=== PATIENT | female | born 1950 | race Caucasian/White ===

== ENCOUNTER 2016-09-12 13:04 | Emergency (ER) | payer BC, OTHER ==
[2016-09-12 13:10] VITALS: BP 169/70; PULSE 78; TEMP 98.6; BMI 24.8
--- NOTE | 2016-09-12 15:26 | PDOC ---
History of Present Illness - General History Source: Patient Exam Limitations: No Limitations - History of Present Illness Initial Comments: 09/12/16 15:26 The patient is a 66 year old female, with significant past medical history of CAD s/p stents x2, who presents today complaining of RLE pain s/p mechanical fall at work yesterday. The patient explains that she slipped and fell on the medial aspect of her right knee and thigh. The patient describes a shooting pain at the right knee that radiates to the right hip and a sore ach in the right lower back. The knee pain is exacerbated upon ambulation and flexion. She noticed that her knee started clicking after the injury. She denies paresthesias to the right foot. Denies LOC, head trauma. Denies neck pain. Denies fever, chills, nausea, vomiting. Allergies: none reported Surgical Hx: cholecystectomy Social Hx: Tobacco use. <Susana Barney - Last Filed: 09/12/16 15:52> <Lior Cortes - Last Filed: 09/12/16 17:05> - General Chief Complaint: Injury Stated Complaint: BACK, RT HIP, RT THIGH, RT KNEE PAIN S/P FALL Time Seen by Provider: 09/12/16 13:09 Past History <Susana Barney - Last Filed: 09/12/16 15:52> - Past Medical History Cancer: Yes (Cervical) Cardiac Disorders: Yes (CAD) - Surgical History Cardiac Surgery: Yes (CARDIAC STENTS) Cholecystectomy: Yes - Psycho/Social/Smoking Cessation Hx Anxiety: No Suicidal Ideation: No Smoking History: Current every day smoker Have you smoked in the past 12 months: Yes Number of Cigarettes Smoked Daily: 6 If you are a former smoker, when did you quit?: 2013 Information on smoking cessation initiated: Yes 'Breaking Loose' booklet given: 09/12/16 Hx Alcohol Use: (occasional) Drug/Substance Use Hx: No Substance Use Type: None Hx Substance Use Treatment: No <Lior Cortes - Last Filed: 09/12/16 17:05> - Past Medical History Allergies/Adverse Reactions: Allergies Allergy/AdvReac Type Severity Reaction Status Date / Time No Known Allergies Allergy Verified 09/12/16 13:05 Review of Systems - Review of Systems Able to Perform ROS?: Yes Comments:: 09/12/16 15:26 CONSTITUTIONAL: Absent: fever, no chills, no fatigue EYES: Absent: visual changes ENT: Absent: ear pain, no sore throat CARDIOVASCULAR: Absent: chest pain, no palpitations RESPIRATORY: Absent: cough, no SOB GI: Absent: abdominal pain, no nausea, no vomiting, no constipation, no diarrhea GENITOURINARY: Absent: dysuria, no frequency, no hematuria MUSCULOSKELETAL: Present: right knee pain radiating to the right hip and right lower back SKIN: Absent: rash <Susana Barney - Last Filed: 09/12/16 15:52> *Physical Exam - Vital Signs Last Vital Signs Temp Pulse Resp BP Pulse Ox 98.6 F 78 18 169/70 97 09/12/16 13:05 09/12/16 13:05 09/12/16 13:05 09/12/16 13:05 09/12/16 13:05 - Physical Exam Comments: 09/12/16 15:26 GENERAL: Well-appearing, well-nourished. No apparent distress. HEENT: Normocephalic, atraumatic. PERRL, EOM intact. CARDIOVASCULAR: Normal S1, S2. Regular rate and rhythm. PULMONARY: Clear to auscultation bilaterally. BACK: +Normal lordotic curve. No signs of spasm. No point tenderness of the vertebral bodies. No signs of inflammation. EXTREMITIES: +Right knee with tenderness over the joint space. Good ROM of the right hip with no signs of limitation. Pulses in tact. No sensory deficit. SKIN: Warm, dry. No rash NEUROLOGICAL: No focal neurological deficits. <Susana Barney - Last Filed: 09/12/16 15:52> - Vital Signs Last Vital Signs Temp Pulse Resp BP Pulse Ox 98.6 F 78 18 169/70 97 09/12/16 13:05 09/12/16 13:05 09/12/16 13:05 09/12/16 13:05 09/12/16 13:05 <Lior Cortes - Last Filed: 09/12/16 17:05> ED Treatment Course - RADIOLOGY Radiograph Interpretation: 09/12/16 15:52 EXAM#: TYPE/EXAM: RESULT: [id number] RAD/KNEE 2 POS-RIGHT Right knee: Pain 2 views reveal no sign of fracture, subluxation bone destruction. There is no sign of swelling, foreign body or soft tissue air. If symptoms persist, further imaging may be of help. Impression: No acute pathology. Reported By: Rian Cochran MD 09/12/16 1543 <Susana Barney - Last Filed: 09/12/16 15:52> - RADIOLOGY Radiology Studies Ordered: Category Date Time Status KNEE 2 POS-RIGHT [RAD] Stat Radiology 09/12/16 14:51 Ordered <Lior Cortes - Last Filed: 09/12/16 17:05> Medical Decision Making - Medical Decision Making 09/12/16 17:01 Examination shows no sign of severe injury. The back maintains its normal lumbar lordosis and there is no evidence of spasm point tenderness or inflammation. No reported radiation of pain and no numbness tingling or weakness of the lower extremity. Straight leg raising is negative. The right knee shows no deformity swelling or effusion. There mild point tenderness over the medial joint space but no stress tenderness or laxity of the MCL. LCL and ACL are normal. Patella and patellar retinaculum are intact and nontender. Distal pulses are full and there is no distal sensory or motor deficit. X-ray is negative The right hip has full range of motion in flexion and extension internal and external rotation without pain or limitation. There is no point tenderness over the greater trochanter or the pelvis. Knee immobilizer was applied. Rest ice and elevation recommended. Follow-up with orthopedist if no improvement. Patient fully ambulatory and in no pain or other distress upon discharge with her to follow up as directed. <Lior Cortes - Last Filed: 09/12/16 17:05> *DC/Admit/Observation/Transfer - Attestations Scribe Attestion: 09/12/16 15:26 Documentation prepared by JESSA Yo, acting as medical radiation dosimetrist for Lior Cortes MD. <Susana Barney - Last Filed: 09/12/16 15:52> - Discharge Dispostion Admit: No <Lior Cortes - Last Filed: 09/12/16 17:05> Diagnosis at time of Disposition: Knee sprain Qualifiers: Encounter type: initial encounter Involved ligament of knee: medial collateral ligament Laterality: right Qualified Code(s): S83.411A - Sprain of medial collateral ligament of right knee, initial encounter - Discharge Dispostion Disposition: HOME Condition at time of disposition: Stable - Referrals Referrals: Gregory Dumont MD [Staff Physician] - - Patient Instructions Printed Discharge Instructions: DI for Knee Sprain, How to Use a Knee Immobilizer Additional Instructions: Rest ice elevation in knee immobilizer for standing and walking Advil or Aleve for pain and swelling Recheck orthopedist if no improvement one week - Post Discharge Activity Work/School Note: Back to Work
== END 2016-09-12 15:42 | disposition home or self-care (01) ==
LOC: FER 13:04
DX: S83.411A Sprain of medial collateral ligament of right knee, initial encounter (principal); W19.XXXA Unspecified fall, initial encounter; Y93.9 Activity, unspecified; Y92.9 Unspecified place or not applicable; Z85.41 Personal history of malignant neoplasm of cervix uteri; Z95.5 Presence of coronary angioplasty implant and graft; F17.210 Nicotine dependence, cigarettes, uncomplicated
CPT/HCPCS: 73560-TC-RT; 99282-25

== ENCOUNTER 2024-05-29 02:52 | Observation (INO) | payer OTHER ==
[2024-05-29 03:00] VITALS: BMI 20.2
[2024-05-29] MEDS ORDERED: morphine SULFATE 4 MG/ML VIAL ONE (03:36)
[2024-05-29] MEDS: morphine CARPU-JECT 4 MG/1 ML DISP.SYRIN IVPUSH ONE (03:42)
[2024-05-29 04:02] LABS: BASO % 0.2 % (0-2.0); HEMATOCRIT 51.4 % (32.4-45.2); HEMOGLOBIN 17.4 GM/dL (10.7-15.3); LYMPH % 5.5 % (8-40); MCH 29.8 pg (25.7-33.7); MCHC 33.9 g/dl (32.0-36.0); MEAN PLT VOLUME 8.3 fl (7.5-11.1); MONO % 4.8 % (3.8-10.2); NEUT % 89.5 % (42.8-82.8); PLATELET COUNT 312 10^3/uL (134-434); RBC 5.85 M/mm3 (3.60-5.2); RDW 14.1 % (11.6-15.6); WHITE BLOOD COUNT 11.9 K/mm3 (4.0-10.0)
[2024-05-29 04:21] LABS: POTASSIUM 4.5 mmol/L (3.5-5.1)
[2024-05-29 04:24] LABS: CALCIUM 10.9 mg/dL (8.5-10.1)
[2024-05-29 04:27] LABS: CREATININE 1.4 mg/dL (0.55-1.3)
[2024-05-29 04:28] LABS: BILIRUBIN,TOTAL 1.1 mg/dL (0.2-1); TOT PROT 7.9 g/dl (6.4-8.2)
[2024-05-29 04:32] LABS: LACTIC ACID 3.1 mmol/L (0.4-2.0)
[2024-05-29] MEDS ORDERED: ACETAMINOPHEN INJECTION 100 ML ONE (06:28)
[2024-05-29] MEDS ORDERED: FAMOTIDINE 20 MG/50 ML IVPB 20 MG/50 ML MG IVPB ONE (06:28)
[2024-05-29] MEDS: ACETAMINOPHEN 1000 MG/100 ML BAG IVPB ONE (06:38)
[2024-05-29] MEDS: SODIUM CHLORIDE 0.9% 500 ML INFUS.BAG IV ONE (06:38)
[2024-05-29] MEDS: ONDANSETRON 4 MG/2 ML VIAL IVPUSH ONE (07:10)
[2024-05-29] MEDS ORDERED: ONDANSETRON 4 MG/2 ML VIAL ONE (07:40)
[2024-05-29] MEDS: morphine CARPU-JECT 2 MG/1 ML DISP.SYRIN IVPUSH ONE (10:00)
[2024-05-29] MEDS ORDERED: MORPHINE SULFATE 2 MG/ML SYRINGE ONE (10:45)
[2024-05-29] MEDS ORDERED: TRIMETHOBENZAMIDE HCL 200MG/2ML INJ IM PRN (11:48)
[2024-05-29] MEDS ORDERED: ACETAMINOPHEN 1000 MG/100 ML BAG IVPB PRN (11:58)
[2024-05-29] MEDS ORDERED: ENOXAPARIN NA (PORCINE) 30 MG/0.3 ML DISP.SYRIN SQ ONE (12:10)
[2024-05-29] MEDS ORDERED: ONDANSETRON 4 MG/2 ML VIAL IVPUSH PRN (12:22)
[2024-05-29] MEDS: SODIUM CHLORIDE 1,000 ML IV STA (12:24)
[2024-05-29] MEDS ORDERED: HYDROmorphone HCl 2 MG/ML VIAL IVPB PRN (14:39)
[2024-05-29] MEDS: HYDROmorphone HCL CARPU-JECT 2 MG/1 ML DISP.SYRIN IVPB PRN (15:58)
[2024-05-29 16:56] LABS: HEMATOCRIT 42.6 % (32.4-45.2); HEMOGLOBIN 14.6 GM/dL (10.7-15.3); MCH 30.1 pg (25.7-33.7); MCHC 34.2 g/dl (32.0-36.0); MEAN PLT VOLUME 7.6 fl (7.5-11.1); PLATELET COUNT 241 10^3/uL (134-434); RBC 4.84 M/mm3 (3.60-5.2); WHITE BLOOD COUNT 3.5 K/mm3 (4.0-10.0)
[2024-05-29 17:23] LABS: POTASSIUM 3.8 mmol/L (3.5-5.1)
[2024-05-29 17:25] LABS: BLOOD UREA NITROGEN 20.7 mg/dL (7-18)
[2024-05-29] MEDS: ACETAMINOPHEN 1000 MG/100 ML BAG IVPB SCH (17:26)
[2024-05-29 17:27] LABS: MAGNESIUM 1.9 mg/dL (1.8-2.4)
[2024-05-29 17:29] LABS: PHOSPHOROUS 4.7 mg/dL (2.5-4.9)
[2024-05-29 17:32] LABS: CALCIUM 8.1 mg/dL (8.5-10.1)
[2024-05-29] MEDS: SODIUM CHLORIDE 1,000 ML IV SCH (20:02)
[2024-05-30 08:42] LABS: BASO % 0.3 % (0-2.0); EOS % 0.2 % (0-4.5); HEMATOCRIT 39.5 % (32.4-45.2); HEMOGLOBIN 13.3 GM/dL (10.7-15.3); LYMPH % 11.7 % (8-40); MCH 29.7 pg (25.7-33.7); MCHC 33.6 g/dl (32.0-36.0); MEAN CELL VOLUME 88.4 fl (80-96); MEAN PLT VOLUME 7.8 fl (7.5-11.1); MONO % 8.5 % (3.8-10.2); NEUT % 79.3 % (42.8-82.8); PLATELET COUNT 192 10^3/uL (134-434); RBC 4.47 M/mm3 (3.60-5.2); WHITE BLOOD COUNT 5.6 K/mm3 (4.0-10.0)
[2024-05-30 08:47] LABS: POTASSIUM 3.3 mmol/L (3.5-5.1)
[2024-05-30 08:54] LABS: BLOOD UREA NITROGEN 17.5 mg/dL (7-18); CALCIUM 7.9 mg/dL (8.5-10.1); MAGNESIUM 1.8 mg/dL (1.8-2.4)
[2024-05-30 08:56] LABS: CREATININE 0.9 mg/dL (0.55-1.3)
[2024-05-30 08:57] LABS: BILIRUBIN,TOTAL 0.9 mg/dL (0.2-1)
[2024-05-30 09:14] LABS: ALBUMIN 2.9 g/dl (3.4-5.0); TOT PROT 5.5 g/dl (6.4-8.2)
[2024-05-30] MEDS: METOPROLOL TARTRATE 25 MG TABLET (FP) PO SCH (09:42)
[2024-05-30] MEDS: ENOXAPARIN NA (PORCINE) 30 MG/0.3 ML DISP.SYRIN SQ SCH (10:08)
[2024-05-30] MEDS: KCL 10 MEQ IVPB 10 MEQ/100 ML INFUS.BAG IVPB SCH (10:14)
[2024-05-30] MEDS: POTASSIUM CHLORIDE ORAL LIQUID 20 MEQ/15 ML PO ONE (15:09)
[2024-05-30] MEDS ORDERED: AMOX TR/POT CLAV 500MG/125MG TABLETS (FP) PO SCH (17:30)
[2024-05-31 08:36] LABS: BASO % 0.4 % (0-2.0); EOS % 0.8 % (0-4.5); HEMATOCRIT 38.1 % (32.4-45.2); HEMOGLOBIN 12.8 GM/dL (10.7-15.3); LYMPH % 10.9 % (8-40); MCH 29.6 pg (25.7-33.7); MCHC 33.6 g/dl (32.0-36.0); MEAN CELL VOLUME 88.1 fl (80-96); MEAN PLT VOLUME 7.7 fl (7.5-11.1); MONO % 10.7 % (3.8-10.2); NEUT % 77.2 % (42.8-82.8); PLATELET COUNT 220 10^3/uL (134-434); RBC 4.32 M/mm3 (3.60-5.2)
[2024-05-31 08:51] LABS: POTASSIUM 3.4 mmol/L (3.5-5.1)
[2024-05-31 09:00] LABS: CALCIUM 8.5 mg/dL (8.5-10.1)
[2024-05-31 09:04] LABS: CREATININE 0.9 mg/dL (0.55-1.3)
[2024-05-31 09:06] LABS: BILIRUBIN,TOTAL 0.8 mg/dL (0.2-1); TOT PROT 5.9 g/dl (6.4-8.2)
[2024-05-31] MEDS: POTASSIUM CHLORIDE ORAL LIQUID 20 MEQ/15 ML PO ONE (10:18)
[2024-05-31] MEDS: FAMOTIDINE 20 MG TABLET PO ONE (11:23)
[2024-05-31] MEDS: SIMETHICONE 80 MG TAB.CHEW (FP) PO PRN (11:35)
[2024-05-31] MEDS: amLODIPine BESYLATE 2.5 MG TABLET (FP) PO ONE (17:42)
[2024-06-01] MEDS: FAMOTIDINE 20 MG TABLET PO SCH (09:14)
[2024-06-01] MEDS: amLODIPine BESYLATE 5 MG TABLET (FP) PO SCH (09:14)
[2024-06-01 11:17] VITALS: RESP 16
[2024-06-01 17:03] VITALS: BP 162/70; PULSE 52; TEMP 97.5
== END 2024-06-01 19:10 | disposition home or self-care (01) ==
LOC: JER 02:52 → JERBED 10:21 → J8W 13:54
PROVIDERS: ADMIT Student in an Organized Health Care Education/Training Program; ATTEND Nurse Practitioner Family
PROC: 3E033NZ Introduction of Analgesics, Hypnotics, Sedatives into Peripheral Vein, Percutaneous Approach (ICD-10-PCS; principal; 2024-05-29)
PROC: 3E023GC Introduction of Other Therapeutic Substance into Muscle, Percutaneous Approach (ICD-10-PCS; 2024-05-29)
PROC: 3E0337Z Introduction of Electrolytic and Water Balance Substance into Peripheral Vein, Percutaneous Approach (ICD-10-PCS; 2024-05-29)
DX: R10.13 Epigastric pain (principal); I71.9 Aortic aneurysm of unspecified site, without rupture; D72.829 Elevated white blood cell count, unspecified; Z95.5 Presence of coronary angioplasty implant and graft; Z85.41 Personal history of malignant neoplasm of cervix uteri; Z90.79 Acquired absence of other genital organ(s); Z90.49 Acquired absence of other specified parts of digestive tract
CPT/HCPCS: 0241U-QW; 36415; 71275-TC; 74019-TC-FY; 74174-TC; 80048; 80053; 83605; 83690; 83735; 84100; 84484; 85025; 85027; 93005; 93010; 96372; 96374; 96375; 96376; 99285-25; G0378; J0131; Q9967